=== PATIENT | male | born 1955 | race Caucasian/White ===

== ENCOUNTER → 2024-11-11 | Outpatient (CLI) | payer BC, MEDICARE, SELFPAY ==
--- NOTE | 2024-11-11 15:45 | XR_ITS ---
Examination: MRI lumbar spine without contrast Date and time of exam: November 11, 2024 1607 hours COMPARISON: 08/22/2023 INDICATIONS: Lower back pain radiating down the left leg numbness and paresthesias in the left leg beginning 2 years ago Technique: Multiple MRI axial and sagittal sections lumbar spine. Sagittal T2-weighted images, TR 3500, TE 118 T1 weighted transverse sections, TR 688 T8.5, T2-weighted sagittal sections T1 weighted sagittal sections TR 621, TE 30 T2 axial sections, TR 4, 190, TE 84. Findings: Adequate alignment lumbar vertebral bodies on the lateral view Diffuse lumbar disc desiccation Adequate marrow signal lumbar vertebral bodies L5-S1 7 mm central paracentral disc bulge contiguous with the left S1 nerve root L4-L5 large, 16 mm extruded disc severely indenting the thecal sac, axial image 4 displacing both L5 nerve roots L3-L4 3 mm left foraminal disc bulge L2-L3 no disc protrusion L1-L2 no disc protrusion IMPRESSION: L5-S1 7 mm central paracentral disc bulge contiguous with the left S1 nerve root L4-L5 large, 16 mm, extruded disc, central, displacing both L5 nerve roots
== END | disposition home or self-care (01) ==
LOC: SMRI 15:01
PROVIDERS: PCP Internal Medicine; Referring Provider Internal Medicine; Visit Provider Internal Medicine
DX: M51.369 Other intervertebral disc degeneration, lumbar region without mention of lumbar back pain or lower extremity pain (principal); M51.379 Other intervertebral disc degeneration, lumbosacral region without mention of lumbar back pain or lower extremity pain
CPT/HCPCS: 72148

== ENCOUNTER 2024-11-18 16:50 | Emergency (ER) | payer BC, MEDICARE, SELFPAY ==
[2024-11-18 16:51] VITALS: BP 171/91; PULSE 74; RESP 18; TEMP 36.7; O2SAT 98
[2024-11-18 16:56] VITALS: PULSE 89; RESP 18; O2SAT 98; BMI 23.7
--- NOTE | 2024-11-18 18:01 | PD.EDBACK ---
ED Back Injury Pain RME/HPI General Chief Complaint: Back Pain/Injury Stated Complaint: BACK PAIN Time Seen by Provider: 11/18/24 18:00 Arrival date/time: 11/18/24 16:50 Limitations: no limitations RME / HPI RME / HPI Narrative: Dr. Campos's Main ED Evaluation: 69yo male presents to the ED for a chief complaint of lower back pain x 2 days. Patient states his pain radiates down his left leg. He denies any urinary or bowel incontinence. Denies any UTI symptoms, fever, chills, weakness or any other associated symptoms. No known allergies. Patient is followed by [facility]. Related Data Previous Rx's ?Medication ?Instructions ?Recorded tramadol 50 mg tablet 50 mg PO Q6H PRN pain #30 tabs 11/19/24 Allergies Allergy/AdvReac Type Severity Reaction Status Date / Time No Known Allergies Allergy Verified 05/31/22 07:36 Review of Systems Review of Systems Systems Reviewed: All systems reviewed, normal except as documented Past Medical History Past Medical History NEUROLOGIC: Negative Neurological Disorders CARDIAC: Positive Cardiac Disorders and Deep Vein Thrombosis; Negative Congestive Heart Failure or Hypertension RESPIRATORY: Positive Pulmonary Embolism; Negative Chronic Obstructive Pulmonary Disease (COPD) or Asthma GASTROINTESTINAL: Negative Gastrointestinal Disorders GENITOURINARY: Negative Genitourinary Disorders or Renal Disease REPRODUCTIVE: Negative Fibroids MUSCULOSKELETAL: Positive Musculoskeletal Disorders and Degenerative Disk Disease ENT: Positive Cataracts ENDOCRINE: Negative Diabetes Mellitus Type 1 or Diabetes Mellitus Type 2 HEMATOLOGIC: Negative Blood Disorders or Sickle Cell Disease OTHER HISTORY: Negative Cancer Surgical History SURGICAL: Positive Angiogram Social History SMOKING STATUS: Current some day smoker SUBSTANCE USE: does not use ED Exam General Limitations: Present no limitations General appearance: Present alert and in no apparent distress Head Head exam: Present atraumatic Eye Eye exam: Present normal appearance, PERRL and EOMI ENT ENT exam: Present normal exam, normal oropharynx and mucous membranes moist Neck Neck exam: Present normal inspection, full ROM and trachea midline Chest Chest inspection: Present normal inspection and symmetric chest wall rise Respiratory Respiratory exam: Present normal lung sounds bilaterally Cardiovascular Cardiovascular exam: Present regular rate, normal rhythm and normal heart sounds Abdominal Exam Abdominal exam: Present soft and normal bowel sounds Extremities Exam Extremities exam: Present full ROM and other (loss of sensations to the lateral left leg and medial leg, and anterior thigh with decreased reflexes in the bilateral patellas and ankles; has normal sensation in the posterior thigh and feet. ) Back Exam Back exam: Present normal inspection and full ROM Neurological Exam Neurological exam: Present alert, oriented X3 and CN II-XII intact Psychiatric Psychiatric exam: Present normal affect and normal mood Skin Skin exam: Present warm, dry, intact and normal color Course Quality Measures none Orders Category Date Time Status Bladder Scan NEEDED Care 11/19/24 04:24 Active IV [Insert IV] STAT Care 11/18/24 18:[address] lumbar spine wo con Stat Exams 11/18/24 18:40 Completed CBC Stat Lab 11/18/24 19:42 Completed CMP [Comprehensive Metabolic Panel] Stat Lab 11/18/24 19:42 Completed Urinalysis Stat Lab 11/18/24 19:21 Completed Dexamethasone Inj [Decadron Inj] Med 11/19/24 04:22 Discontinued 10 mg IVP X1 ONE HYDROmorphone INJ [Dilaudid Inj] Med 11/19/24 03:15 Discontinued 1 mg IVP X1 ONE Morphine Inj Med 11/18/24 18:47 Discontinued 4 mg IVP X1 ONE Ondansetron Inj [Zofran Inj] Med 11/19/24 03:15 Discontinued 4 mg IV X1 ONE Ondansetron Inj [Zofran Inj] Med 11/19/24 04:22 Discontinued 4 mg IV X1 ONE Reevaluation(s) Reevaluation #1: Patient states he feels more comfortable after receiving pain medications. Patient has a loss of sensations lateral left leg and medial leg, and anterior thigh and decreased reflexes in the bilateral patellas and ankles - all of which are old. He has normal sensation in posterior thigh and feet. Time: 20:04 Vital Signs Vital signs: Vital Signs Temperature 98.0 F 11/18/24 16:51 Pulse Rate 74 11/18/24 16:51 Respiratory Rate 18 11/18/24 16:51 Blood Pressure 171/91 H 11/18/24 16:51 Pulse Oximetry (%) 98 11/18/24 16:51 Oxygen Delivery Method Room Air 11/18/24 16:51 Pulse ox is 98% on room air, which is normal according to my interpretation. Back Pain / Injury MDM Narrative MDM Narrative:: Patient without evidence of cauda equina syndrome, pain is improved. Will have the patient follow-up with his primary care physician so he can get referral to neurosurgery clinic as an outpatient. lumbar mri 08/2023 IMPRESSION: L5-S1 6.6 mm central lumbar disc bulge displacing the left S1 nerve root and contiguous with the right S1 nerve root L4-5 5 mm central lumbar disc bulge MRI lumbar spine without contrast Date and time of exam: November 11, 2024 1607 hours COMPARISON: 08/22/2023 INDICATIONS: Lower back pain radiating down the left leg numbness and paresthesias in the left leg beginning 2 years ago IMPRESSION: L5-S1 7 mm central paracentral disc bulge contiguous with the left S1 nerve root L4-L5 large, 16 mm, extruded disc, central, displacing both L5 nerve roots Dictated By: Antonio Lin MD Signed By: <Electronically signed by Antonio Lin MD in [place]> 11/11/[address] lumbar spine, without contrast. 2-D sagittal reconstructions. 2-D coronal reconstructions. 3-D reconstructions. Date and time of exam:2023 1911 hrs. Impression: No acute lumbar fracture L5-S1 3 mm central lumbar disc bulge, prominent right facet arthropathy producing severe right neural foraminal stenosis with right L5 ganglionic compression L4-L5 partially extruded 8 mm left paracentral subarticular disc, severely indenting the thecal sac and displacing the left L5 nerve root MRI lumbar spine without contrast follow-up would best assess full extent of the acquired spinal stenosis Patient data External records reviewed:: [facility] previous records (Reviewed outpatient lumbar spine MRI from 11/11/24.) Clinical information provided by:: patient Social determinants that could affect healthcare access:: none Patient has the following chronic illnesses:: HTN, chronic back pain How is presenting disease/condition affected by chronic disease/condition?: caused by Evaluation data The following diagnostics were reviewed and interpreted by me:: lab results and radiology exam(s) Lab and/or radiology exams considered but not ordered:: none Interpretation Summary: UA shows 8 RBCs, CBC is normal, CMP is normal, according to my interpretation. ------- I have personally reviewed the radiology data and agree with the radiologist's interpretation below: [facility] Report Signed Patient: JESUS BRODY Record#: [id number] Birthdate: 1955 Age/Sex: 69 / M Location: [facility] Attending Dr: Ordering Physician: Lulu Storey MD Date of Service: 11/18/24 Procedure(s): CT lumbar spine wo con Accession Number(s): [id number] cc: Antonio Lin MD; Stephon Hernandez MD; Lulu Storey MD~ Examination: CT lumbar spine, without contrast. 2-D sagittal reconstructions. 2-D coronal reconstructions. 3-D reconstructions. Date and time of exam:2023 191 hrs. Indications: Onset lower back pain today CTDI: vol (mGy):21.4 DLP: (mGycm):689 Technique: Multiple 1.25 mm axial sections of the lumbar spine without contrast have been obtained. 2-D sagittal and coronal reconstructions have been obtained. 3-D reconstructions have been obtained. Low dose protocols were performed. One or more of the following dose reduction techniques were used; automated exposure control, adjustment of the mA and/or KV according to patient size, use of iterative reconstruction technique. Findings: Adequate alignment lumbar vertebral bodies on the lateral view Mild diffuse lumbar disc narrowing Mild lumbar spondylosis No spondylolisthesis Lumbar pedicles, laminae, transverse and posterior spinous processes intact L5-S1 3 mm central lumbar disc bulge, right facet arthropathy producing severe right neural foraminal stenosis with L5 ganglionic compression, sagittal image 52 L4-L5 partially extruded 8 mm left paracentral subarticular disc, axial image 106, severely indenting the thecal sac and displacing the left L5 nerve root L3-L4 2 mm central lumbar disc bulge L2-L3 no disc protrusion L1-L2 no disc protrusion Impression: No acute lumbar fracture L5-S1 3 mm central lumbar disc bulge, prominent right facet arthropathy producing severe right neural foraminal stenosis with right L5 ganglionic compression L4-L5 partially extruded 8 mm left paracentral subarticular disc, severely indenting the thecal sac and displacing the left L5 nerve root MRI lumbar spine without contrast follow-up would best assess full extent of the acquired spinal stenosis Dictated By: Antonio Lin MD Signed By: <Electronically signed by Antonio Lin MD in [place]> 11/18/241951 Medications / Prescriptions Medications or Prescriptions considered but not ordered:: none Medication administrations:: Medication Administration History Discontinued Medications Dexamethasone Sodium Phosphate (Dexamethasone Sod Phos Inj 4 Mg/Ml Vial) 10 mg IVP X1 ONE; Protocol Stop: 11/19/24 04:23 Hydromorphone HCl (Hydromorphone Inj 2 Mg/Ml Vial) 1 mg IVP X1 ONE Stop: 11/19/24 03:16 Last Admin: 11/19/24 03:24 Dose: Not Given Documented By: SF Non-Admin Reason: Discontinued Morphine Sulfate (Morphine Sulf Inj 10 Mg/Ml Vial) 4 mg IVP X1 ONE Stop: 11/18/24 18:48 Last Admin: 11/18/24 19:43 Dose: 4 mg Documented By: SF Ondansetron HCl (Ondansetron Inj 2 Mg/Ml Inj 2 Ml) 4 mg IV X1 ONE; Protocol Stop: 11/19/24 03:16 Last Admin: 11/19/24 03:24 Dose: Not Given Documented By: SF Non-Admin Reason: Discontinued Ondansetron HCl (Ondansetron Inj 2 Mg/Ml Inj 2 Ml) 4 mg IV X1 ONE; Protocol Stop: 11/19/24 04:23 see above Consultations Consultation(s) initiated? (list below): Yes Consultation #1 (Physician, Specialty, Details): Spoke with Dr. Boo from neurosurgery at [facility]. States the patient can f/u in his spine clinic as an outpatient, and to call [phone] for an appointment. Time: 05:09 Diagnosis Differential diagnosis back pain/injury: sciatica and other (herniated disc, muscle strain, acute on chronic back pain, UTI) Most likely diagnosis given after review of the tests above:: see below Admission Indicated Admission indicated?: not indicated Admission Request Was there a request for admission?: No Disposition Plan Disposition Plan: Discharge Discharge Attestation Discharge Attestation: The patient and all family members were given an opportunity to ask questions and understood the discharge instructions. Discharge instructions specifically effects, indications for sooner follow up or return to the emergency department, and the expected course of current diagnosis. Patient condition: Stable Discharge Plan Plan Patient Disposition: HOME (Self Care) Patient condition on transfer: Stable Prescriptions/Referrals Prescriptions/Med Rec: New tramadol 50 mg tablet 50 mg PO Q6H PRN (Reason: pain) Qty: 30 0RF Referrals: Stephon Hernandez MD [Primary Care Provider] - In 1 week Problem List Clinical Impression: Chronic low back pain, Bulging discs Patient/Caregiver Discharge Instructions Additional Instructions: I discussed your case with Dr. Boo at the Neuro surgery at [facility] and at this time he feels you can follow-up as an outpatient at his clinic. Please call [phone]. You could also be referred to the neurosurgery and/or spine clinic at [facility] or [place]. Your primary care physician can figure out what that is based on your insurance. Return to emergency department for increase in pain, increasing weakness, loss of sensation in the groin area, loss of urination or black bowel incontinence or you feel like you cannot urinate. I will give you a prescription of Tramadol. Print Language: Croatian Stand Alone Forms: Divya Award Info., Patient Portal Info Letter
--- NOTE | 2024-11-18 18:40 | XR_ITS ---
Examination: CT lumbar spine, without contrast. 2-D sagittal reconstructions. 2-D coronal reconstructions. 3-D reconstructions. Date and time of exam:2023 1911 hrs. Indications: Onset lower back pain today CTDI: vol (mGy):21.4 DLP: (mGycm):689 Technique: Multiple 1.25 mm axial sections of the lumbar spine without contrast have been obtained. 2-D sagittal and coronal reconstructions have been obtained. 3-D reconstructions have been obtained. Low dose protocols were performed. One or more of the following dose reduction techniques were used; automated exposure control, adjustment of the mA and/or KV according to patient size, use of iterative reconstruction technique. Findings: Adequate alignment lumbar vertebral bodies on the lateral view Mild diffuse lumbar disc narrowing Mild lumbar spondylosis No spondylolisthesis Lumbar pedicles, laminae, transverse and posterior spinous processes intact L5-S1 3 mm central lumbar disc bulge, right facet arthropathy producing severe right neural foraminal stenosis with L5 ganglionic compression, sagittal image 52 L4-L5 partially extruded 8 mm left paracentral subarticular disc, axial image 106, severely indenting the thecal sac and displacing the left L5 nerve root L3-L4 2 mm central lumbar disc bulge L2-L3 no disc protrusion L1-L2 no disc protrusion Impression: No acute lumbar fracture L5-S1 3 mm central lumbar disc bulge, prominent right facet arthropathy producing severe right neural foraminal stenosis with right L5 ganglionic compression L4-L5 partially extruded 8 mm left paracentral subarticular disc, severely indenting the thecal sac and displacing the left L5 nerve root MRI lumbar spine without contrast follow-up would best assess full extent of the acquired spinal stenosis
[2024-11-18 19:22] VITALS: BP 161/84; PULSE 77; RESP 18; TEMP 35.6; O2SAT 98
[2024-11-18] MEDS: MORPHINE SULF INJ 10 MG/ML VIAL 4 MG IVP (19:43)
[2024-11-18 19:47] LABS: Collection Type, Urine Voided; Squamous Epithelial Cell,Urine 0 /hpf (0-5)
[2024-11-18 20:01] LABS: Bilirubin,Urine Negative (Negative); Blood,Urine Negative (Negative); Clarity,Urine Clear (Clear/Hazy); Color,Urine Yellow (Lt Yel-Yel); Glucose, Urine Negative (Negative); Ketones,Urine 1+ (Negative); Leukocyte Esterase,Urine Negative (Negative); Nitrite,Urine Negative (Negative); Protein,Urine Negative (Neg - Trace); RBC,Urine 8 /hpf (0-3); Specific Gravity,Urine 1.018 (1.001-1.035); Urobilinogen,Urine Negative mg/dL (0.0-1.0); WBC,Urine 3 /hpf (0-5)
[2024-11-18 20:17] LABS: Basophils % (Auto) 0 % (0-2.5); Eosinophils % (Auto) 0 % (0-10); Hematocrit 49.7 % (41.0-53.0); Hemoglobin 17.3 g/dL (13.5-16.0); Immature Granulocytes % (Auto) 0 % (0-0); Immature Granulocytes Auto 0.03 Thou/mm3 (0.00-0.00); Lymphocytes # (Auto) 1.6 Thou/mm3 (1.0-4.8); Lymphocytes % (Auto) 17 % (10-50); Mean Corpuscular HGB Conc 34.8 g/dl (31.0-37.0); Mean Corpuscular Hemoglobin 31.6 pg (25.0-35.0); Mean Corpuscular Volume 91 fL (80-100); Monocytes # (Auto) 0.5 Thou/mm3 (0.0-0.8); Monocytes % (Auto) 5 % (0-12); Neutrophils # (Auto) 7.4 Thou/mm3 (1.8-7.7); Neutrophils % (Auto) 77 % (37-80); Nucleated Red Blood Cell % 0 /100 WBC (0); Platelet Count 233 Thou/mm3 (140-440); Red Blood Count 5.47 Miln/mm3 (4.50-5.90); White Blood Count 9.6 Thou/mm3 (3.8-10.6)
[2024-11-18 20:32] LABS: Alanine Aminotransferase 11 U/L (10-49); Albumin, Serum 4.6 gm/dL (3.4-4.8); Albumin/Globulin Ratio 1.9 (1.2-2.2); Alkaline Phosphatase 102 U/L (46-116); Anion Gap 6 (7-16); Aspartate Amino Transferase 11 U/L (0-34); BUN/Creatinine Ratio 12 Ratio (12-20); Bilirubin,Total 0.5 mg/dL (0.3-1.2); Blood Urea Nitrogen 12 mg/dL (9-23); Calcium 9.8 mg/dL (8.3-10.6); Calcium (Corrected) 9.8 mg/dL (8.5-10.1); Carbon Dioxide 24.9 mMol/L (20.0-31.0); Chloride 105 mMol/L (98-107); Estimated Creatinine Clearance 89.1 mL/min (>60); Globulin 2.4 gm/dL (2.3-3.5); Glucose 102 mg/dL (74-106); Osmolality,Calculated 271 (275-295); Potassium 4.3 mMol/L (3.4-5.1); Sodium 136 mMol/L (136-145); eGFR > 60 See Note
[2024-11-18 23:17] VITALS: BP 151/86; PULSE 71; RESP 19; TEMP 36.6; O2SAT 97
[2024-11-19 02:13] VITALS: BP 155/83; PULSE 76; RESP 18; TEMP 36.6; O2SAT 96
[2024-11-19 04:47] VITALS: BP 158/91; PULSE 82; RESP 18; TEMP 36.9; O2SAT 96
[2024-11-19] MEDS: DEXAMETHASONE SOD PHOS INJ 4 MG/ML VIAL 10 MG IVP (05:08)
--- NOTE | 2024-11-19 05:09 | PC.NURSE ---
[id number] CONTACTED [facility] LEFT MESSAGE BUT SENT PT [phone] [facility] RETURNED CALL AND SPEAKING WITH DR ROSA AT THIS TIME.
== END 2024-11-19 05:35 | disposition home or self-care (01) ==
PROVIDERS: Emergency Provider Emergency Medicine; PCP Family Medicine
DX: M51.370 Other intervertebral disc degeneration, lumbosacral region with discogenic back pain only (principal); M47.817 Spondylosis without myelopathy or radiculopathy, lumbosacral region; M48.07 Spinal stenosis, lumbosacral region; G95.29 Other cord compression; M51.26 Other intervertebral disc displacement, lumbar region
CPT/HCPCS: 36415; 72131; 80053; 81001; 85025; 96374; 96375; 99284; J1100; J2270

== ENCOUNTER → 2025-09-30 | Outpatient (CLI) | payer MEDICARE, MEDICAID, SELFPAY ==
--- NOTE | 2025-09-30 15:00 | XR_ITS ---
Examination: Abdomen sonogram, complete Date and time of exam: September 30, 2025, 1510 hours INDICATIONS: Right upper abdominal pain beginning several years ago, history gallstones. Technique: Multiple real-time grayscale transabdominal sonographic images of the abdomen have been obtained. Findings: Multiple gallstones Gallbladder 1.3 cm Common bile duct 0.6 cm Pancreas obscured by bowel gas Mid and distal aorta visualized not enlarged Hepatomegaly 18.7 cm fatty infiltration Normal hepatopetal portal venous flow Patent IVC Right kidney 11.3 cm renal cortex 1.3 cm Left kidney 10.7 cm renal cortex 1.6 cm No hydronephrosis Mild renal scar formation Spleen 10.3 cm IMPRESSION: Cholelithiasis, negative for cholecystitis Moderate hepatomegaly
== END | disposition home or self-care (01) ==
LOC: CDIM 14:55
PROVIDERS: PCP Internal Medicine; Referring Provider Internal Medicine; Visit Provider Internal Medicine
DX: K80.20 Calculus of gallbladder without cholecystitis without obstruction (principal); R16.0 Hepatomegaly, not elsewhere classified
CPT/HCPCS: 76700